=== PATIENT | female | born 1960 | race Caucasian/White ===

== ENCOUNTER 2023-10-09 11:09 | Emergency (ER) | payer BC, OTHER ==
[2023-10-09 11:27] VITALS: TEMP 98.2
--- NOTE | 2023-10-09 12:34 | ED ---
General Adult HPI - General Chief complaint: Shortness of Breath Stated complaint: Post Op Comp Time Seen by Provider: 10/09/23 11:24 Source: patient Mode of arrival: ambulatory Limitations: no limitations - History of Present Illness Initial comments: Dictation was produced using glob[employer] dictation software. please excuse any grammatical, word or spelling errors. Chief Complaint: 63-year-old female with pleurisy History of Present Illness: Patient 63-year-old female she had a lung nodule removed at [facility] 3 weeks ago. She had this performed minimally invasive by cardiothoracic surgery. Patient's has been recovering well states that her biopsy results were negative for anything malignant. Patient states that over the last 2 days she has developed pleuritic chest pain to the right lower chest. The ROS documented in this emergency department record has been reviewed and confirmed by me. Those systems with pertinent positive or negative responses have been documented in the HPI. All other systems are other negative and/or noncontributory. - Related Data Home Medications Medication Instructions Recorded Confirmed ALPRAZolam [Xanax] 0.25 mg PO DAILY PRN 10/09/23 10/09/23 Acetaminophen [Tylenol] 650 mg PO Q6H PRN 10/09/23 10/09/23 Atorvastatin [Lipitor] 20 mg PO HS 10/09/23 10/09/23 Beclomethasone Dipropionate [Qvar 2 puff INHALATION RT-BID 10/09/23 10/09/23 80mcg Redihaler] Fluticasone Nasal Mcclure [Flonase 2 spray EA NOSTRIL DAILY 10/09/23 10/09/23 Nasal Mcclure] Gabapentin 300 mg PO Q6H 10/09/23 10/09/23 Ibuprofen [Motrin Ib] 400 mg PO Q6H PRN 10/09/23 10/09/23 Ketoconazole 2% Shampoo [Nizoral] 1 applic TOPICAL Q3D PRN 10/09/23 10/09/23 Losartan [Cozaar] 25 mg PO DAILY 10/09/23 10/09/23 Melatonin 2.5 mg PO HS 10/09/23 10/09/23 Allergies Allergy/AdvReac Type Severity Reaction Status Date / Time No Known Allergies Allergy Verified 10/09/23 13:14 Review of Systems ROS Statement: Those systems with pertinent positive or pertinent negative responses have been documented in the HPI. ROS Other: All systems not noted in ROS Statement are negative. Past Medical History Past Medical History: Asthma, Hypertension History of Any Multi-Drug Resistant Organisms: None Reported Additional Past Surgical History / Comment(s): nodule removed right lung Past Psychological History: Anxiety Smoking Status: Never smoker Past Alcohol Use History: Occasional Past Drug Use History: None Reported General Exam - General Exam Comments Initial Comments: PHYSICAL EXAM: General Impression: Alert and oriented x3, not in acute distress HEENT: Normocephalic atraumatic, extra-ocular movements intact, pupils equal and reactive to light bilaterally, mucous membranes moist. Cardiovascular: Heart regular rate and rhythm Chest: Able to complete full sentences, no retractions, no tachypnea Abdomen: abdomen soft, non-tender, non-distended, no organomegaly Musculoskeletal: Pulses present and equal in all extremities, no peripheral edema Motor: no focal deficits noted Neurological: CN II-XII grossly intact, no focal motor or sensory deficits noted Skin: Intact with no visualized rashes Psych: Normal affect and mood Limitations: no limitations Course Vital Signs 10/09/23 11:12 Temperature 98.2 F Pulse Rate 99 Respiratory 16 Rate Blood Pressure 166/87 O2 Sat by Pulse 95 Oximetry Medical Decision Making - Medical Decision Making Was pt. sent in by a medical professional or institution (YOHANA Landrum, HEALTH CARE TECHNICIAN, urgent care, hospital, or fci...) When possible be specific @ -No Did you speak to anyone other than the patient for history (EMS, parent, family, police, friend...)? What history was obtained from this source @ -No Did you review nursing and triage notes (agree or disagree)? Why? @ -I reviewed and agree with nursing and triage notes Were old charts reviewed (outside hosp., previous admission, EMS record, old EKG, old radiological studies, urgent care reports/EKG's, fci records)? Report findings @ -No old charts were reviewed Differential Diagnosis (chest pain, altered mental status, abdominal pain women, abdominal pain men, vaginal bleeding, musculoskeletal, weakness, fever, dyspnea, syncope, headache, dizziness, GI bleed, back pain, seizure, CVA, palpatations, mental health)? @ -Differential Chest Pain: Stable Angina, Unstable Angina, STEMI, NSTEMI Aortic Dissection, Pneumothorax, Musculoskeletal, Esophageal Spasm GERD, Cholecystitis, Pancreatitis, Zoster, this is not meant to be an all-inclusive list. EKG interpreted by me (3pts min.). @ -My EKG interpretation: Ventricular rate 71, sinus rhythm,. 172, cures 80, QTc 408. No MS prolongation, no QTC prolongation, no ST or T-wave changes noted. Overall, this EKG is unremarkable X-rays interpreted by me (1pt min.). @ -Checks x-ray shows small right pleural effusion CT interpreted by me (1pt min.). @ -None done U/S interpreted by me (1pt. min.). @ -None done What testing was considered but not performed or refused? (CT, X-rays, U/S, labs)? Why? @ -None What meds were considered but not given or refused? Why? @ -None Did you discuss the management of the patient with other professionals (professionals i.e. , PA, HEALTH CARE TECHNICIAN, lab, RT, psych nurse, social media job titles, talent acquisition manager, teacher, public records officer, case repairer)? Give summary @ -No Was smoking cessation discussed for >3mins.? @ -No Was critical care preformed (if so, how long)? @ -No Were there social determinants of health that impacted care today? How? (Homelessness, low income, unemployed, alcoholism, drug addiction, transportation, low edu. Level, literacy, decrease access to med. care, fpc, rehab)? @ -No Was there de-escalation of care discussed even if they declined (Discuss DNR or withdrawal of care, Hospice)? DNR status @ -No What co-morbidities impacted this encounter? (DM, HTN, Smoking, COPD, CAD, Cancer, CVA, ARF, Chemo, Hep., AIDS, mental health diagnosis, sleep apnea, morbid obesity)? @ -None Was patient admitted / discharged? Hospital course, mention meds given and route, prescriptions, significant lab abnormalities, going to OR and other perti nent info. @ -63-year-old female presents emergency department with pleuritic chest pain. Vital signs stable. Patient well-appearing at the bedside. X-ray shows right pleural effusion. Patient well-appearing. Labs are unremarkable. Patient discharged advised follow-up with cardiothoracic surgeon. Undiagnosed new problem with uncertain prognosis? @ -No Drug Therapy requiring intensive monitoring for toxicity (Heparin, Nitro, Insulin, Cardizem)? @ -No Were any procedures done? @ -No Diagnosis/symptom? Acute, or Chronic, or Acute on Chronic? Uncomplicated (without systemic symptoms) or Complicated (systemic symptoms)? @ -Pleural effusion Side effects of treatment? @ -No Exacerbation, Progression, or Severe Exacerbation? @ -No Poses a threat to life or bodily function? How? (Chest pain, [place], [place], pneumonia, PE, COPD, DKA, ARF, appy, cholecystitis, CVA, Diverticulitis, Homicidal, Suicidal, threat to staff... and all critical care pts) @ -No - Lab Data Result diagrams: 10/09/23 12:38 10/09/23 12:38 Lab Results 10/09/23 10/09/23 10/09/23 Range/Units 12:38 12:38 12:38 WBC 6.2 (3.8-10.6) k/uL RBC 4.71 (3.80-5.40) m/uL Hgb 14.4 (11.4-16.0) gm/dL Hct 45.8 (34.0-46.0) % MCV 97.2 (80.0-100.0) fL MCH 30.6 (25.0-35.0) pg MCHC 31.5 (31.0-37.0) g/dL RDW 12.9 (11.5-15.5) % Plt Count 315 (150-450) k/uL MPV 6.9 Neutrophils % 73 % Lymphocytes % 16 % Monocytes % 6 % Eosinophils % 2 % Basophils % 2 % Neutrophils # 4.5 (1.3-7.7) k/uL Lymphocytes # 1.0 (1.0-4.8) k/uL Monocytes # 0.4 (0-1.0) k/uL Eosinophils # 0.1 (0-0.7) k/uL Basophils # 0.1 (0-0.2) k/uL D-Dimer 0.50 (<0.60) mg/L FEU Sodium 134 L (137-145) mmol/L Potassium 5.0 (3.5-5.1) mmol/L Chloride 102 (98-107) mmol/L Carbon Dioxide 29 (22-30) mmol/L Anion Gap 3 mmol/L BUN 10 (7-17) mg/dL Creatinine 0.61 (0.52-1.04) mg/dL Est GFR (CKD-EPI)AfAm >90 (>60 ml/min/1.73 sqM) Est GFR (CKD-EPI)NonAf >90 (>60 ml/min/1.73 sqM) Glucose 108 H (74-99) mg/dL Calcium 10.0 (8.4-10.2) mg/dL Total Bilirubin 1.3 (0.2-1.3) mg/dL AST 22 (14-36) U/L ALT 21 (4-34) U/L Alkaline Phosphatase 102 (38-126) U/L Troponin I (0.000-0.034) ng/mL NT-Pro-B Natriuret Pep 181 pg/mL Total Protein 6.7 (6.3-8.2) g/dL Albumin 4.5 (3.5-5.0) g/dL Lipase 52 (23-300) U/L 10/09/23 Range/Units 12:38 WBC (3.8-10.6) k/uL RBC (3.80-5.40) m/uL Hgb (11.4-16.0) gm/dL Hct (34.0-46.0) % MCV (80.0-100.0) fL MCH (25.0-35.0) pg MCHC (31.0-37.0) g/dL RDW (11.5-15.5) % Plt Count (150-450) k/uL MPV Neutrophils % % Lymphocytes % % Monocytes % % Eosinophils % % Basophils % % Neutrophils # (1.3-7.7) k/uL Lymphocytes # (1.0-4.8) k/uL Monocytes # (0-1.0) k/uL Eosinophils # (0-0.7) k/uL Basophils # (0-0.2) k/uL D-Dimer (<0.60) mg/L FEU Sodium (137-145) mmol/L Potassium (3.5-5.1) mmol/L Chloride (98-107) mmol/L Carbon Dioxide (22-30) mmol/L Anion Gap mmol/L BUN (7-17) mg/dL Creatinine (0.52-1.04) mg/dL Est GFR (CKD-EPI)AfAm (>60 ml/min/1.73 sqM) Est GFR (CKD-EPI)NonAf (>60 ml/min/1.73 sqM) Glucose (74-99) mg/dL Calcium (8.4-10.2) mg/dL Total Bilirubin (0.2-1.3) mg/dL AST (14-36) U/L ALT (4-34) U/L Alkaline Phosphatase (38-126) U/L Troponin I <0.012 (0.000-0.034) ng/mL NT-Pro-B Natriuret Pep pg/mL Total Protein (6.3-8.2) g/dL Albumin (3.5-5.0) g/dL Lipase (23-300) U/L Disposition Clinical Impression: Pleurisy Disposition: HOME SELF-CARE Condition: Good Instructions (If sedation given, give patient instructions): Pleurisy (ED) Is patient prescribed a controlled substance at d/c from ED?: No Referrals: Michelle Mahoney [Primary Care Provider] - 1-2 days Time of Disposition: 13:29
[2023-10-09 12:50] LABS: Basophils # (A) 0.1 k/uL (0-0.2); Basophils % (A) 2 %; Eosinophils # (A) 0.1 k/uL (0-0.7); Eosinophils % (A) 2 %; HCT 45.8 % (34.0-46.0); HGB 14.4 gm/dL (11.4-16.0); Lymphocytes % (A) 16 %; MCH 30.6 pg (25.0-35.0); MCHC 31.5 g/dL (31.0-37.0); MCV 97.2 fL (80.0-100.0); Mean Platelet Volume 6.9; Monocytes # (A) 0.4 k/uL (0-1.0); Monocytes % (A) 6 %; Neutrophils # (A) 4.5 k/uL (1.3-7.7); Neutrophils % (A) 73 %; Platelet Count 315 k/uL (150-450); RBC 4.71 m/uL (3.80-5.40); RDW 12.9 % (11.5-15.5); WBC 6.2 k/uL (3.8-10.6)
[2023-10-09 13:04] LABS: ALT 21 U/L (4-34); AST 22 U/L (14-36); African American GFR (CKD) >90 (>60 ml/min/1.73 sqM); Albumin 4.5 g/dL (3.5-5.0); Alkaline Phosphatase 102 U/L (38-126); Anion Gap 3 mmol/L; Blood Urea Nitrogen 10 mg/dL (7-17); Carbon Dioxide 29 mmol/L (22-30); Chloride 102 mmol/L (98-107); Glucose 108 mg/dL (74-99); Lipase 52 U/L (23-300); Non-African American GFR(CKD) >90 (>60 ml/min/1.73 sqM); Sodium 134 mmol/L (137-145); Total Bilirubin 1.3 mg/dL (0.2-1.3); Total Protein 6.7 g/dL (6.3-8.2)
--- NOTE | 2023-10-09 13:09 | XR ---
EXAMINATION TYPE: XR chest 2V DATE OF EXAM: 10/09/2023 COMPARISON: None INDICATION: Pleurisy right side TECHNIQUE: Frontal and lateral views of the chest are obtained. FINDINGS: The heart size is normal. The pulmonary vasculature is normal. There is a small right pleural effusion. Hyperinflation and flattening the diaphragms is present.. IMPRESSION: 1. Small right pleural effusion. 2. Hyperinflation. Correlate for COPD
[2023-10-09 13:12] LABS: NT-Pro-B-Type Natriuretic Pept 181 pg/mL
[2023-10-09 14:02] VITALS: BP 128/73; PULSE 76; RESP 18
== END 2023-10-09 14:01 | disposition home or self-care (01) ==
LOC: EC 11:09
DX: R09.1 Pleurisy (principal)
CPT/HCPCS: 36415; 71046; 80053; 83690; 83880; 84484; 85025; 85379; 93005; 99285